=== PATIENT | male | born 1955 | race African-American/Black ===

== ENCOUNTER 2019-07-16 16:44 | Inpatient (IN) | payer OTHER ==
[2019-07-16 19:43] VITALS: BMI 27.3
[2019-07-16] MEDS ORDERED: MAGNESIUM CITRATE 300 ML BOTTLE PO PRN (21:29)
[2019-07-16] MEDS ORDERED: chlordiazePOXIDE HCL 25 MG CAPSULE PO PRN (21:29)
[2019-07-16] MEDS ORDERED: DICYCLOMINE HCL 10 MG CAPSULE PO PRN (21:29)
[2019-07-16] MEDS ORDERED: MENTHOL/PHENOL 1 EACH UD MM PRN (21:29)
[2019-07-16] MEDS ORDERED: BISMUTH SUBSALICYLATE 524 MG/30 ML UD PO PRN (21:29)
[2019-07-16] MEDS ORDERED: hydrOXYzine PAMOATE 25 MG CAPSULE (FP) PO PRN (21:29)
[2019-07-16] MEDS ORDERED: IBUPROFEN 400 MG TABLET (FP) PO PRN (21:29)
[2019-07-16] MEDS ORDERED: MAG HYDROX/AL HYDROX/SIMETH 30 ML UNIT-DOSE CUP PO PRN (21:29)
[2019-07-16] MEDS ORDERED: MAGNESIUM HYDROX 2400MG/30ML ORAL SUSPENSION 30 ML CUP PO PRN (21:29)
[2019-07-16] MEDS ORDERED: ACETAMINOPHEN 325 MG TABLET (FP) PO PRN ×2 (21:29)
[2019-07-16] MEDS ORDERED: ONDANSETRON *ODT* 4 MG TABLET SL PRN (21:29)
[2019-07-16] MEDS ORDERED: METHOCARBAMOL 500 MG TABLET PO PRN (21:29)
[2019-07-16] MEDS ORDERED: guaiFENesin 200 MG/10 ML 10 ML UNIT-DOSE CUPS PO PRN (21:29)
[2019-07-16] MEDS ORDERED: MELATONIN 5 MG TABLETS PO PRN (21:29)
[2019-07-16] MEDS ORDERED: NICOTINE POLACRILEX 2 MG GUM BUC PRN (21:29)
[2019-07-16] MEDS ORDERED: P-EPHED 60MG/TRIPROLIDI 2.5MG TABLET PO PRN (21:29)
--- NOTE | 2019-07-16 21:41 | HP ---
CIWA Score Nausea/Vomitin-No Nausea/No Vomiting Muscle Tremors: None Anxiety: 1-Mildly Anxious Agitation: 1-Slight > Activity Paroxysmal Sweats: 3 Orientation: 2-Disoriented Date<2 days Tacttile Disturbances: 3-Moderate Itch/Numb/Burn Auditory Disturbances: 0-None Visual Disturbances: 0-None Headache: 0-None Present CIWA-Ar Total Score: 10 - Admission Criteria OAS Guidelines: Admission for Medically Managed Detox: Requires at least one of the followin. CIWA greater than 12 2. Seizures within the past 24 hours 3. Delirium tremens within the past 24 hours 4. Hallucinations within the past 24 hours 5. Acute intervention needed for co occurring medical disorder 6. Acute intervention needed for co occurring psychiatric disorder 7. Severe withdrawal that cannot be handled at a lower level of care (continued vomiting, continued diarrhea, abnormal vital signs) requiring intravenous medication and/or fluids 8. Patient presents the following: Acute intervention needed for co-occurring med or psych disorder Admission Criteria Met: Admission criteria met Admission ROS [facility] Chief Complaint: C/O WITHDRAWAL SX'S Allergies/Adverse Reactions: Allergies Allergy/AdvReac Type Severity Reaction Status Date / Time No Known Allergies Allergy Verified 07/16/19 19:28 History of Present Illness: HERE FOR ALCOHOL DETOX. CLIENT IS REFERRED BY [facility] OUT PATIENT FOR ON GOING ALCOHOL ABUSE. CLIENT REPORTS DAILY ALCOHOL INTAKE. LAST DRINK EARLIER TODAY. PRESENTS WITH C/O WORSENING WITHDRAWAL SX'S. SEEKING HELP HE CANT STOP DRINKING DUE TO WITHDRAWAL SX'S. DENIES HX/O SEIZURES, BLACKOUTS, OVERDOSE, SI/ HI, + auditory hALLUCINATION WITH INTOXICATION. DENIES ANY SIGNIFICANT PERIOD OF CLEAN TIME EXCEPT WHEN IN TXMENT. HOMELESS, EMPLOYED, DENIES LEGALS Exam Limitations: No Limitations - Ebola screening Have you traveled outside of the country in the last 21 days: No Have you had contact with anyone from an Ebola affected area: No Do you have a fever: No - Review of Systems Constitutional: Chills, Loss of Appetite, Night Sweats, Changes in sleep EENT: reports: Dental Problems (DENTAL IMPLANTS) Respiratory: reports: No Symptoms reported Cardiac: reports: No Symptoms Reported GI: reports: Poor Appetite, Poor Fluid Intake : reports: No Symptoms Reported Musculoskeletal: reports: No Symptoms Reported Integumentary: reports: Dryness Neuro: reports: No Symptoms reported, Numbness Endocrine: reports: No Symptoms Reported Hematology: reports: No Symptoms Reported Psychiatric: reports: Anxious Other Systems: Reviewed and Negative Patient History - Patient Medical History Hx Anemia: No Hx Asthma: No Hx Chronic Obstructive Pulmonary Disease (COPD): No Hx Cancer: No Hx Cardiac Disorders: No Hx Congestive Heart Failure: No Hx Hypertension: No Hx Hypercholesterolemia: No Hx Pacemaker: No HX Cerebrovascular Accident: No Hx Seizures: No Hx Dementia: No Hx Diabetes: No Hx Gastrointestinal Disorders: No Hx Liver Disease: No Hx Genitourinary Disorders: No Hx Sexually Transmitted Disorders: No Hx Renal Disease (ESRD): No Hx Thyroid Disease: No Hx Human Immunodeficiency Virus (HIV): No Hx Hepatitis C: No Hx Depression: Yes Hx Suicide Attempt: No Hx Bipolar Disorder: No Hx Schizophrenia: No Other Medical History: DENIES - Patient Surgical History Past Surgical History: Yes - PPD History Previous Implant?: Yes Documented Results: Negative w/proof Implanted On Prior [facility] Admission?: No PPD to be Administered?: Yes - Smoking Cessation Smoking history: Current every day smoker Have you smoked in the past 12 months: Yes Aproximately how many cigarettes per day: 0 Cigars Per Day: 6 (MONTH) Hx Chewing Tobacco Use: No Initiated information on smoking cessation: Yes 'Breaking Loose' booklet given: 07/16/19 - Substance & Tx. History Hx Alcohol Use: Yes Hx Substance Use: Yes Substance Use Type: Alcohol, Cocaine Hx Substance Use Treatment: Yes ([facility] - Substances abused Crack Other (specify): crack. Substance route: Smoking Frequency: 3-6 times per week Amount used: 40 to 60 dollars Age of first use: 54 Date of last use: 07/16/19 Alcohol Substance route: Oral Frequency: 3-6 times per week Amount used: 1 pint of hard liqour. Age of first use: 19 Date of last use: 07/16/19 Admission Physical Exam BHS - Vital Signs Vital Signs: Vital Signs - 24 hr 07/16/19 07/16/19 19:32 21:11 Temperature 98.4 F 98.4 F Pulse Rate 97 H 97 H Respiratory 20 20 Rate Blood Pressure 122/76 122/76 - Physical General Appearance: Yes: Mild Distress, Anxious HEENTM: Yes: EOMI, Normocephalic, Normal Voice, MENG, Pharynx Normal, Other ( MISSING TEETH) Respiratory: Yes: Chest Non-Tender, Lungs Clear, Normal Breath Sounds, No Respiratory Distress, No Accessory Muscle Use Neck: Yes: No masses,lesions,Nodules, Supple, Trachea in good position Breast: Yes: Breasts Symetrical Cardiology: Yes: Regular Rhythm, Regular Rate, S1, S2 Abdominal: Yes: Normal Bowel Sounds, Non Tender, Soft Genitourinary: Yes: Within Normal Limits Back: Yes: Normal Inspection Musculoskeletal: Yes: full range of Motion, Gait Steady, Joint Stiffness (R IGHT HIP) Extremities: Yes: Normal Capillary Refill, Normal Range of Motion, Non-Tender Neurological: Yes: Alert, Motor Strength 5/5, Depressed Affect Integumentary: Yes: Dry, Warm Lymphatic: Yes: Within Normal Limits - Diagnostic (1) Alcohol dependence with withdrawal, uncomplicated Current Visit: Yes Status: Acute (2) Cocaine dependence, uncomplicated Current Visit: Yes Status: Acute (3) Tobacco abuse Current Visit: Yes Status: Acute (4) Homeless Current Visit: Yes Status: Acute (5) Substance induced mood disorder Current Visit: Yes Status: Acute (6) Arthritis of right hip Current Visit: Yes Status: Chronic Cleared for Admission [facility] - Detox or Rehab [facility] Level of Care: Medically Managed Detox Regimen/Protocol: Librium Claeared for Rehab Admission: No Breathalyzer - Breathalyzer Breathalyzer: 0 Urine Drug Screen - Test Device Lot number: [id number] Expiration date: 03/31/21 - Control Is test valid?: Yes - Results Drug screen NEGATIVE: No Urine drug screen results: JAREN-Cocaine Inpatient Rehab Admission - Rehab Decision to Admit Inpatient rehab admission?: No
[2019-07-16] MEDS ORDERED: chlordiazePOXIDE HCL 10 MG CAPSULE PO PRN (21:47)
[2019-07-16] MEDS ORDERED: chlordiazePOXIDE HCL 25 MG CAPSULE PO SCH (23:00)
[2019-07-16] MEDS: THIAMINE HCL 100 MG TABLET (FP) PO SCH (23:56)
[2019-07-16] MEDS: NAPROXEN 500 MG TABLET (FP) PO SCH (23:56)
[2019-07-16] MEDS: chlordiazePOXIDE HCL 25 MG CAPSULE PO SCH (23:56)
[2019-07-17] MEDS: chlordiazePOXIDE HCL 25 MG CAPSULE PO SCH ×3 (05:11→22:12)
[2019-07-17] MEDS ORDERED: NICOTINE 14 MG/24 HOURS TOPICAL PATCH TD SCH (10:00)
[2019-07-17] MEDS: PRENATAL VITAMINS W/ FOLIC ACID TABLET (FP) PO SCH (10:16)
[2019-07-17] MEDS: NAPROXEN 500 MG TABLET (FP) PO SCH ×2 (10:16→22:12)
[2019-07-17 10:20] LABS: URINE APPEARANCE CLEAR; URINE BILIRUBIN NEGATIVE (NEGATIVE); URINE COLOR YELLOW; URINE GLUCOSE (UA) NEGATIVE (NEGATIVE); URINE KETONE NEGATIVE (NEGATIVE); URINE LEUK ESTERASE NEGATIVE (NEGATIVE); URINE NITRITE NEGATIVE (NEGATIVE); URINE PROTEIN NEGATIVE (NEGATIVE)
[2019-07-17 10:27] LABS: HEMOGLOBIN 11.1 GM/dL (11.7-16.9); MCH 30.4 pg (25.7-33.7); MCHC 33.6 g/dl (32.0-35.9); MEAN CELL VOLUME 90.5 fl (80-96); MEAN PLT VOLUME 8.1 fl (7.5-11.1); PLATELET COUNT 273 K/MM3 (134-434); RBC 3.64 M/mm3 (4.00-5.60); RDW 16.8 % (11.9-15.9); WHITE BLOOD COUNT 6.3 K/mm3 (4.0-10.0)
[2019-07-17 10:35] LABS: ALBUMIN 3.5 g/dl (3.4-5.0); BILIRUBIN,TOTAL 0.2 mg/dL (0.2-1); BLOOD UREA NITROGEN 13.1 mg/dL (7-18); CALCIUM 8.6 mg/dL (8.5-10.1); CREATININE 0.9 mg/dL (0.55-1.3); POTASSIUM 4.1 mmol/L (3.5-5.1); TOT PROT 6.4 g/dl (6.4-8.2)
--- NOTE | 2019-07-17 12:30 | PN ---
[facility] CIWA - CIWA Score Nausea/Vomitin-No Nausea/No Vomiting Muscle Tremors: None Anxiety: 4-Mod. Anxious/Guarded Agitation: 0-Normal Activity Paroxysmal Sweats: 2 Orientation: 0-Oriented Tacttile Disturbances: 1-Very Mild Itch/Numbness Auditory Disturbances: 0-None Visual Disturbances: 3-Moderate Sensitivity Headache: 0-None Present CIWA-Ar Total Score: 10 BHS Progress Note (SOAP) Subjective: Fatigue, Anxious, Sweating. Objective: PATIENT A & O X 3. IN NO ACUTE DISTRESS. 07/17/19 12:28 Vital Signs Temperature 99.0 F 07/17/19 10:00 Pulse Rate 119 H 07/17/19 10:00 Respiratory Rate 18 07/17/19 10:00 Blood Pressure 153/79 07/17/19 10:00 O2 Sat by Pulse Oximetry (%) Laboratory Tests 07/17/19 07/17/19 07/17/19 07:55 07:55 07:55 WBC 6.3 RBC 3.64 L Hgb 11.1 L Hct 33.0 L MCV 90.5 MCH 30.4 MCHC 33.6 RDW 16.8 H Plt Count 273 MPV 8.1 Sodium 140 Potassium 4.1 Chloride 105 Carbon Dioxide 29 Anion Gap 6 L BUN 13.1 Creatinine 0.9 Est GFR (CKD-EPI)AfAm 104.24 Est GFR (CKD-EPI)NonAf 89.94 Random Glucose 91 Calcium 8.6 Total Bilirubin 0.2 AST 11 L ALT 13 Alkaline Phosphatase 99 Total Protein 6.4 Albumin 3.5 Urine Color Urine Appearance Urine pH Ur Specific [place] Urine Protein Urine Glucose (UA) Urine Ketones Urine Blood Urine Nitrite Urine Bilirubin Urine Urobilinogen Ur Leukocyte Esterase RPR Titer Nonreactive 07/17/19 07:55 WBC RBC Hgb Hct MCV MCH MCHC RDW Plt Count MPV Sodium Potassium Chloride Carbon Dioxide Anion Gap BUN Creatinine Est GFR (CKD-EPI)AfAm Est GFR (CKD-EPI)NonAf Random Glucose Calcium Total Bilirubin AST ALT Alkaline Phosphatase Total Protein Albumin Urine Color Yellow Urine Appearance Clear Urine pH 7.0 Ur Specific [place] 1.026 Urine Protein Negative Urine Glucose (UA) Negative Urine Ketones Negative Urine Blood Negative Urine Nitrite Negative Urine Bilirubin Negative Urine Urobilinogen 1.0 Ur Leukocyte Esterase Negative RPR Titer LABS NOTED. Assessment: 07/17/19 12:29 WITHDRAWAL SYMPTOMS. ANEMIA. Plan: CONTINUE DETOX. PATIENT IS CURRENTLY RECEIVING DAILY MVI CONTAINING B VITAMINS AND IRON WHILE ADMITTED FOR DETOX.
--- NOTE | 2019-07-17 17:06 | CONSULT ---
[facility] Psychiatric Consult - Data Date of interview: 07/17/19 Admission source: [facility] Identifying data: First admission to [facility] [place] for this 64 y/o AA male self- referred for detoxification (RAMIRO issues (alcohol, nicotine, cocaine/crack). Interviewed at [address] [place] [address]. Patient is single, a father of two, domiciled, unemployed and supported on SSI benefits. Substance Abuse History: Discussed in this session. Details in current [facility] report as follows : Smoking history: Current every day smoker. Have you smoked in the past 12 months: Yes. Aproximately how many cigarettes per day: 0. Cigars Per Day: 6 (MONTH). Hx Chewing Tobacco Use: No. Initiated information on smoking cessation: Yes. 'Breaking Loose' booklet given: 07/16/19. - Substance & Tx. History. Hx Alcohol Use: Yes. Hx Substance Use: Yes. Substance Use Type: Alcohol, Cocaine. Hx Substance Use Treatment: Yes ([facility]). - Substances abused. Crack. Other (specify): crack. Substance route: Smoking. Frequency: 3-6 times per week. Amount used: 40 to 60 dollars. Age of first use: 54. Date of last use: 07/16/19. Alcohol. Substance route: Oral. Frequency: 3-6 times per week. Amount used: 1 pint of hard liqour. Age of first use: 19. Date of last use: 07/16/19 Medical History: Arthritis. Psychiatric History: Patient endorses history of 3-4 psychiatric hospitalizations ([facility]ly [facility], [facility], [facility]). Diagnosed with MDD (self-report). Mr Gavin reports that he dropped out of psychistric OPD care for several months. Has been off psychotropic medications for months. No recall onf names of molecules prescribed in the past. Patient denies history of suicide attempts. Physical/Sexual Abuse/Trauma History: Served in the [employer] from 1972 to 1978. Saw action in [place] ([place] Additional Comment: Urine drug screen results: JAREN-Cocaine. Noted. Mental Status Exam - Mental Status Exam Alert and Oriented to: Time, Place, Person Cognitive Function: Good Patient Appearance: Well Groomed Mood: Withdrawn, Hopeful Affect: Appropriate, Normal Range Patient Behavior: Fatigued, Appropriate, Cooperative Speech Pattern: Clear, Appropriate Voice Loudness: Normal Thought Process: Intact, Goal Oriented Thought Disorder: Not Present Hallucinations: Denies Suicidal Ideation: Denies Homicidal Ideation: Denies Insight/Judgement: Fair Sleep: Well Appetite: Good Muscle strength/Tone: Normal Gait/Station: Normal Psychiatric Findings - Problem List ([place] 1, 2,3) (1) Alcohol dependence with withdrawal, uncomplicated Current Visit: Yes Status: Acute (2) Cocaine dependence, uncomplicated Current Visit: Yes Status: Chronic (3) Substance induced mood disorder Current Visit: Yes Status: Suspected - Initial Treatment Plan Initial Treatment Plan: Psychoeducation. Sleep hygiene. Detoxification. AA meetings. MAT services discussed : no interest expressed by patient. Support. Groups. Observation.
[2019-07-17] MEDS: THIAMINE HCL 100 MG TABLET (FP) PO SCH (22:12)
[2019-07-18] MEDS ORDERED: chlordiazePOXIDE HCL 25 MG CAPSULE PO SCH (05:00)
[2019-07-18] MEDS: chlordiazePOXIDE 5 MG CAPSULE PO SCH ×3 (05:49→22:08)
[2019-07-18] MEDS: PRENATAL VITAMINS W/ FOLIC ACID TABLET (FP) PO SCH (10:26)
[2019-07-18] MEDS: NAPROXEN 500 MG TABLET (FP) PO SCH ×2 (10:26→22:08)
--- NOTE | 2019-07-18 11:28 | PN ---
S CIWA - CIWA Score Nausea/Vomitin-No Nausea/No Vomiting Muscle Tremors: 2 Anxiety: 2 Agitation: 1-Slight > Activity Paroxysmal Sweats: 2 Orientation: 0-Oriented Tacttile Disturbances: 0-None Auditory Disturbances: 0-None Visual Disturbances: 0-None Headache: 0-None Present CIWA-Ar Total Score: 7 BHS Progress Note (SOAP) Subjective: Feels ok, medication working well Objective: 07/18/19 11:26 Last Vital Signs Temp Pulse Resp BP Pulse Ox 96.4 F L 95 H 18 129/77 07/18/19 10:43 07/18/19 10:43 07/18/19 10:43 07/18/19 10:43 Laboratory Tests 07/17/19 07/17/19 07/17/19 07:55 07:55 07:55 WBC 6.3 RBC 3.64 L Hgb 11.1 L Hct 33.0 L MCV 90.5 MCH 30.4 MCHC 33.6 RDW 16.8 H Plt Count 273 MPV 8.1 Sodium 140 Potassium 4.1 Chloride 105 Carbon Dioxide 29 Anion Gap 6 L BUN 13.1 Creatinine 0.9 Est GFR (CKD-EPI)AfAm 104.24 Est GFR (CKD-EPI)NonAf 89.94 Random Glucose 91 Calcium 8.6 Total Bilirubin 0.2 AST 11 L ALT 13 Alkaline Phosphatase 99 Total Protein 6.4 Albumin 3.5 Urine Color Urine Appearance Urine pH Ur Specific [place] Urine Protein Urine Glucose (UA) Urine Ketones Urine Blood Urine Nitrite Urine Bilirubin Urine Urobilinogen Ur Leukocyte Esterase RPR Titer Nonreactive 07/17/19 07:55 WBC RBC Hgb Hct MCV MCH MCHC RDW Plt Count MPV Sodium Potassium Chloride Carbon Dioxide Anion Gap BUN Creatinine Est GFR (CKD-EPI)AfAm Est GFR (CKD-EPI)NonAf Random Glucose Calcium Total Bilirubin AST ALT Alkaline Phosphatase Total Protein Albumin Urine Color Yellow Urine Appearance Clear Urine pH 7.0 Ur Specific [place] 1.026 Urine Protein Negative Urine Glucose (UA) Negative Urine Ketones Negative Urine Blood Negative Urine Nitrite Negative Urine Bilirubin Negative Urine Urobilinogen 1.0 Ur Leukocyte Esterase Negative RPR Titer Labs reviewed: anemia noted (mild) Assessment: 07/18/19 11:27 Withdrawal sxs Noted with mild anemia Plan: Continue detox Encouraged PO water intake Mild anemia: most likely due to alcoholism, follow up with PCP for management
[2019-07-18] MEDS: THIAMINE HCL 100 MG TABLET (FP) PO SCH (22:08)
[2019-07-19] MEDS ORDERED: chlordiazePOXIDE HCL 10 MG CAPSULE PO PRN ×2
[2019-07-19] MEDS ORDERED: chlordiazePOXIDE HCL 10 MG CAPSULE PO SCH (05:00)
[2019-07-19] MEDS: chlordiazePOXIDE HCL 10 MG CAPSULE PO SCH ×3 (05:13→22:15)
--- NOTE | 2019-07-19 09:52 | PN ---
[facility] CIWA - CIWA Score Nausea/Vomitin-Mild Nausea/No Vomiting Muscle Tremors: 1-None Visible, but [place] Anxiety: 1-Mildly Anxious Agitation: 1-Slight > Activity Paroxysmal Sweats: No Perspiration Orientation: 0-Oriented Tacttile Disturbances: 0-None Auditory Disturbances: 0-None Visual Disturbances: 0-None Headache: 1-Very Mild CIWA-Ar Total Score: 5 BHS Progress Note (SOAP) Subjective: alert,interrupted sleep, Objective: 07/19/19 09:51 Vital Signs Temperature 98.1 F 07/19/19 09:26 Pulse Rate 89 07/19/19 09:26 Respiratory Rate 18 07/19/19 09:26 Blood Pressure 124/77 07/19/19 09:26 O2 Sat by Pulse Oximetry (%) Assessment: 07/19/19 09:51 withdrawal symptom Plan: continue detox librium regimen,discharge in am
[2019-07-19] MEDS: NAPROXEN 500 MG TABLET (FP) PO SCH ×2 (10:50→22:15)
[2019-07-19] MEDS: PRENATAL VITAMINS W/ FOLIC ACID TABLET (FP) PO SCH (10:50)
[2019-07-19] MEDS: THIAMINE HCL 100 MG TABLET (FP) PO SCH (22:15)
[2019-07-20] MEDS ORDERED: chlordiazePOXIDE HCL 10 MG CAPSULE PO ONE (05:00)
[2019-07-20] MEDS ORDERED: chlordiazePOXIDE HCL 10 MG CAPSULE PO SCH (05:00)
--- NOTE | 2019-07-20 08:52 | DS ---
[facility] Detox Discharge Summary Admission Date: 07/16/19 Discharge Date: 07/20/19 - History Present History: Alcohol Dependence, Cocaine Dependence - Physical Exam Results Vital Signs: Vital Signs Temperature 97.5 F L 07/20/19 06:33 Pulse Rate 80 07/20/19 06:33 Respiratory Rate 18 07/20/19 06:33 Blood Pressure 114/69 07/20/19 06:33 O2 Sat by Pulse Oximetry (%) Pertinent Admission Physical Exam Findings: pt arrived in withdrawals Vital Signs Temperature 97.5 F L 07/20/19 06:33 Pulse Rate 80 07/20/19 06:33 Respiratory Rate 18 07/20/19 06:33 Blood Pressure 114/69 07/20/19 06:33 O2 Sat by Pulse Oximetry (%) Laboratory Tests 07/17/19 07/17/19 07/17/19 07:55 07:55 07:55 WBC 6.3 RBC 3.64 L Hgb 11.1 L Hct 33.0 L MCV 90.5 MCH 30.4 MCHC 33.6 RDW 16.8 H Plt Count 273 MPV 8.1 Sodium 140 Potassium 4.1 Chloride 105 Carbon Dioxide 29 Anion Gap 6 L BUN 13.1 Creatinine 0.9 Est GFR (CKD-EPI)AfAm 104.24 Est GFR (CKD-EPI)NonAf 89.94 Random Glucose 91 Calcium 8.6 Total Bilirubin 0.2 AST 11 L ALT 13 Alkaline Phosphatase 99 Total Protein 6.4 Albumin 3.5 Urine Color Urine Appearance Urine pH Ur Specific [place] Urine Protein Urine Glucose (UA) Urine Ketones Urine Blood Urine Nitrite Urine Bilirubin Urine Urobilinogen Ur Leukocyte Esterase RPR Titer Nonreactive 07/17/19 07:55 WBC RBC Hgb Hct MCV MCH MCHC RDW Plt Count MPV Sodium Potassium Chloride Carbon Dioxide Anion Gap BUN Creatinine Est GFR (CKD-EPI)AfAm Est GFR (CKD-EPI)NonAf Random Glucose Calcium Total Bilirubin AST ALT Alkaline Phosphatase Total Protein Albumin Urine Color Yellow Urine Appearance Clear Urine pH 7.0 Ur Specific [place] 1.026 Urine Protein Negative Urine Glucose (UA) Negative Urine Ketones Negative Urine Blood Negative Urine Nitrite Negative Urine Bilirubin Negative Urine Urobilinogen 1.0 Ur Leukocyte Esterase Negative RPR Titer today pt is aaox3 ambulating no acute distress no s/s of withdrawals - Treatment Hospital Course: Detox Protocol Followed, Detoxed Safely, Responded well, Discharged Condition Good, Rehab Referral Accepted Patient has Accepted a Rehab Referral to: pt referred to [facility] - Medication Discharge Medications: Ambulatory Orders Naproxen [Naprosyn] 1,000 mg PO DAILY PRN 07/16/19 - Diagnosis (1) Alcohol dependence with withdrawal, uncomplicated Current Visit: Yes Status: Chronic (2) Anemia Current Visit: Yes Status: Chronic Qualifiers: Anemia type: unspecified type Qualified Code(s): D64.9 - Anemia, unspecified (3) Homeless Current Visit: Yes Status: Acute (4) Tobacco abuse Current Visit: Yes Status: Acute (5) Arthritis of right hip Current Visit: Yes Status: Chronic (6) Cocaine dependence, uncomplicated Current Visit: Yes Status: Chronic (7) Substance induced mood disorder Current Visit: Yes Status: Suspected - AMA Did Patient Leave Against Medical Advice: No
[2019-07-20 10:11] VITALS: BP 127/77; PULSE 86; TEMP 97.3
[2019-07-20] MEDS: NAPROXEN 500 MG TABLET (FP) PO SCH (10:31)
[2019-07-20] MEDS: PRENATAL VITAMINS W/ FOLIC ACID TABLET (FP) PO SCH (10:31)
[2019-07-21] MEDS ORDERED: chlordiazePOXIDE HCL 10 MG CAPSULE PO ONE (05:00)
== END 2019-07-20 14:25 | disposition other institution (70) | DRG 774 ==
LOC: YASAS 16:44 → Y6N 22:26
PROVIDERS: ADMIT Allergy & Immunology; ATTEND Allergy & Immunology
PROC: HZ2ZZZZ Detoxification Services for Substance Abuse Treatment (ICD-10-PCS; principal; 2019-07-16)
DX: F10.230 Alcohol dependence with withdrawal, uncomplicated (principal); F14.20 Cocaine dependence, uncomplicated; F17.290 Nicotine dependence, other tobacco product, uncomplicated; F19.24 Other psychoactive substance dependence with psychoactive substance-induced mood disorder; D64.9 Anemia, unspecified; M13.851 Other specified arthritis, right hip; Z59.0 Homelessness
CPT/HCPCS: 36415; 80053; 81003; 85027; 86593

== ENCOUNTER 2019-07-20 14:35 | Inpatient (IN) | payer OTHER ==
[2019-07-20] MEDS ORDERED: NICOTINE POLACRILEX 4 MG GUM BUC PRN (15:07)
[2019-07-20] MEDS ORDERED: MAGNESIUM CITRATE 300 ML BOTTLE PO PRN (15:07)
[2019-07-20] MEDS ORDERED: guaiFENesin 200 MG/10 ML 10 ML UNIT-DOSE CUPS PO PRN (15:07)
[2019-07-20] MEDS ORDERED: MAG HYDROX/AL HYDROX/SIMETH 30 ML UNIT-DOSE CUP PO PRN (15:07)
[2019-07-20] MEDS ORDERED: P-EPHED 60MG/TRIPROLIDI 2.5MG TABLET PO PRN (15:07)
[2019-07-20] MEDS ORDERED: LOPERAMIDE HCL 2 MG CAPSULE PO PRN (15:07)
[2019-07-20] MEDS ORDERED: hydrOXYzine PAMOATE 50 MG CAPSULE (FP) PO PRN (15:07)
[2019-07-20] MEDS ORDERED: IBUPROFEN 400 MG TABLET (FP) PO PRN (15:07)
[2019-07-20] MEDS ORDERED: MENTHOL/PHENOL 1 EACH UD MM PRN (15:07)
[2019-07-20] MEDS ORDERED: ACETAMINOPHEN 325 MG TABLET (FP) PO PRN (15:07)
[2019-07-20] MEDS ORDERED: MAGNESIUM HYDROX 2400MG/30ML ORAL SUSPENSION 30 ML CUP PO PRN (15:07)
--- NOTE | 2019-07-20 15:07 | HP ---
[facility] Rehab Assess/Revision - Admission History Admitted to Rehab from: [address] - Vital signs Vital Signs: Vital Signs Period Temp Pulse Resp BP Sys/Benito Pulse Ox Last 24 Hr 97.5 F 107 18 117/74 - Findings Detox History & Physical reviewed: Yes Concur with findings: Yes Inpatient Rehab Admission - Rehab Decision to Admit Inpatient rehab admission?: Yes - Initial Determination Are CD services needed?: Yes Free of communicable disease: Yes Not in need of hospitalization: Yes - Rehab Admission Criteria Previous failed treatment: Yes Poor recovery environment: Yes Comorbidities: Yes Lacks judgement: Yes Patient is meeting Inpatient Rehab admission criteria:: Yes
[2019-07-20] MEDS: THIAMINE HCL 100 MG TABLET (FP) PO SCH (21:15)
[2019-07-20] MEDS: MELATONIN 5 MG TABLETS PO PRN (21:15)
[2019-07-20] MEDS: NAPROXEN 500 MG TABLET (FP) PO SCH (21:15)
[2019-07-21] MEDS: PRENATAL VITAMINS W/ FOLIC ACID TABLET (FP) PO SCH (10:26)
[2019-07-21] MEDS: NAPROXEN 500 MG TABLET (FP) PO SCH ×2 (10:26→22:28)
[2019-07-21] MEDS: NICOTINE 21 MG/24 HOURS TOPICAL PATCH TD SCH (10:26)
[2019-07-21] MEDS: THIAMINE HCL 100 MG TABLET (FP) PO SCH (22:28)
[2019-07-22] MEDS: NAPROXEN 500 MG TABLET (FP) PO SCH ×2 (10:03→21:21)
[2019-07-22] MEDS: PRENATAL VITAMINS W/ FOLIC ACID TABLET (FP) PO SCH (10:03)
[2019-07-22] MEDS: NICOTINE 21 MG/24 HOURS TOPICAL PATCH TD SCH (10:04)
[2019-07-22] MEDS: MELATONIN 5 MG TABLETS PO PRN (21:21)
[2019-07-22] MEDS: THIAMINE HCL 100 MG TABLET (FP) PO SCH (21:21)
[2019-07-23] MEDS: NAPROXEN 500 MG TABLET (FP) PO SCH ×2 (10:31→21:40)
[2019-07-23] MEDS: NICOTINE 21 MG/24 HOURS TOPICAL PATCH TD SCH (10:31)
[2019-07-23] MEDS: PRENATAL VITAMINS W/ FOLIC ACID TABLET (FP) PO SCH (10:31)
[2019-07-23] MEDS: MELATONIN 5 MG TABLETS PO PRN (21:40)
[2019-07-23] MEDS: THIAMINE HCL 100 MG TABLET (FP) PO SCH (21:40)
[2019-07-24] MEDS: PRENATAL VITAMINS W/ FOLIC ACID TABLET (FP) PO SCH (09:46)
[2019-07-24] MEDS: NICOTINE 21 MG/24 HOURS TOPICAL PATCH TD SCH (09:46)
[2019-07-24] MEDS: NAPROXEN 500 MG TABLET (FP) PO SCH ×2 (09:46→21:07)
[2019-07-24] MEDS: THIAMINE HCL 100 MG TABLET (FP) PO SCH (21:07)
[2019-07-25] MEDS: PRENATAL VITAMINS W/ FOLIC ACID TABLET (FP) PO SCH (10:31)
[2019-07-25] MEDS: NICOTINE 21 MG/24 HOURS TOPICAL PATCH TD SCH (10:32)
[2019-07-25] MEDS: NAPROXEN 500 MG TABLET (FP) PO SCH ×2 (10:32→21:17)
[2019-07-25] MEDS: THIAMINE HCL 100 MG TABLET (FP) PO SCH (21:17)
[2019-07-26] MEDS: PRENATAL VITAMINS W/ FOLIC ACID TABLET (FP) PO SCH (10:35)
[2019-07-26] MEDS: NAPROXEN 500 MG TABLET (FP) PO SCH ×2 (10:35→21:13)
[2019-07-26] MEDS: NICOTINE 21 MG/24 HOURS TOPICAL PATCH TD SCH (10:35)
[2019-07-26] MEDS: MELATONIN 5 MG TABLETS PO PRN (21:13)
[2019-07-26] MEDS: THIAMINE HCL 100 MG TABLET (FP) PO SCH (21:13)
[2019-07-27] MEDS: PRENATAL VITAMINS W/ FOLIC ACID TABLET (FP) PO SCH (10:14)
[2019-07-27] MEDS: NICOTINE 21 MG/24 HOURS TOPICAL PATCH TD SCH (10:15)
[2019-07-27] MEDS: NAPROXEN 500 MG TABLET (FP) PO SCH ×2 (10:15→22:00)
[2019-07-27] MEDS: MELATONIN 5 MG TABLETS PO PRN (22:00)
[2019-07-27] MEDS: THIAMINE HCL 100 MG TABLET (FP) PO SCH (22:00)
[2019-07-28] MEDS: NAPROXEN 500 MG TABLET (FP) PO SCH ×2 (10:42→21:55)
[2019-07-28] MEDS: NICOTINE 21 MG/24 HOURS TOPICAL PATCH TD SCH (10:42)
[2019-07-28] MEDS: PRENATAL VITAMINS W/ FOLIC ACID TABLET (FP) PO SCH (10:42)
[2019-07-28] MEDS: MELATONIN 5 MG TABLETS PO PRN (21:56)
[2019-07-28] MEDS: THIAMINE HCL 100 MG TABLET (FP) PO SCH (21:56)
[2019-07-29] MEDS: PRENATAL VITAMINS W/ FOLIC ACID TABLET (FP) PO SCH (10:28)
[2019-07-29] MEDS: NAPROXEN 500 MG TABLET (FP) PO SCH ×2 (10:28→21:47)
[2019-07-29] MEDS: NICOTINE 21 MG/24 HOURS TOPICAL PATCH TD SCH (10:28)
[2019-07-29] MEDS: MELATONIN 5 MG TABLETS PO PRN (21:47)
[2019-07-29] MEDS: THIAMINE HCL 100 MG TABLET (FP) PO SCH (21:47)
[2019-07-30] MEDS: NICOTINE 21 MG/24 HOURS TOPICAL PATCH TD SCH (09:57)
[2019-07-30] MEDS: PRENATAL VITAMINS W/ FOLIC ACID TABLET (FP) PO SCH (09:57)
[2019-07-30] MEDS: NAPROXEN 500 MG TABLET (FP) PO SCH ×2 (09:57→22:59)
[2019-07-30] MEDS: THIAMINE HCL 100 MG TABLET (FP) PO SCH (22:59)
[2019-07-31] MEDS: PRENATAL VITAMINS W/ FOLIC ACID TABLET (FP) PO SCH (09:21)
[2019-07-31] MEDS: NAPROXEN 500 MG TABLET (FP) PO SCH ×2 (09:21→21:41)
[2019-07-31] MEDS: NICOTINE 21 MG/24 HOURS TOPICAL PATCH TD SCH (09:21)
[2019-07-31] MEDS: THIAMINE HCL 100 MG TABLET (FP) PO SCH (21:41)
[2019-08-01] MEDS: NICOTINE 21 MG/24 HOURS TOPICAL PATCH TD SCH (09:00)
[2019-08-01] MEDS: PRENATAL VITAMINS W/ FOLIC ACID TABLET (FP) PO SCH (09:00)
[2019-08-01] MEDS: NAPROXEN 500 MG TABLET (FP) PO SCH ×2 (09:00→21:44)
[2019-08-01] MEDS: THIAMINE HCL 100 MG TABLET (FP) PO SCH (21:44)
[2019-08-02] MEDS: NAPROXEN 500 MG TABLET (FP) PO SCH ×2 (10:34→21:29)
[2019-08-02] MEDS: NICOTINE 21 MG/24 HOURS TOPICAL PATCH TD SCH (10:34)
[2019-08-02] MEDS: PRENATAL VITAMINS W/ FOLIC ACID TABLET (FP) PO SCH (10:34)
[2019-08-02] MEDS: THIAMINE HCL 100 MG TABLET (FP) PO SCH (21:29)
[2019-08-03] MEDS: PRENATAL VITAMINS W/ FOLIC ACID TABLET (FP) PO SCH (10:18)
[2019-08-03] MEDS: NAPROXEN 500 MG TABLET (FP) PO SCH ×2 (10:18→21:52)
[2019-08-03] MEDS: NICOTINE 21 MG/24 HOURS TOPICAL PATCH TD SCH (10:19)
[2019-08-03] MEDS: THIAMINE HCL 100 MG TABLET (FP) PO SCH (21:52)
[2019-08-04] MEDS: NAPROXEN 500 MG TABLET (FP) PO SCH ×2 (10:24→21:22)
[2019-08-04] MEDS: PRENATAL VITAMINS W/ FOLIC ACID TABLET (FP) PO SCH (10:24)
[2019-08-04] MEDS: NICOTINE 21 MG/24 HOURS TOPICAL PATCH TD SCH (10:26)
[2019-08-04] MEDS: THIAMINE HCL 100 MG TABLET (FP) PO SCH (21:23)
[2019-08-05] MEDS: NICOTINE 21 MG/24 HOURS TOPICAL PATCH TD SCH (09:44)
[2019-08-05] MEDS: PRENATAL VITAMINS W/ FOLIC ACID TABLET (FP) PO SCH (09:44)
[2019-08-05] MEDS: NAPROXEN 500 MG TABLET (FP) PO SCH ×2 (09:44→21:23)
[2019-08-05] MEDS: THIAMINE HCL 100 MG TABLET (FP) PO SCH (21:23)
[2019-08-06] MEDS: NICOTINE 21 MG/24 HOURS TOPICAL PATCH TD SCH (10:06)
[2019-08-06] MEDS: PRENATAL VITAMINS W/ FOLIC ACID TABLET (FP) PO SCH (10:06)
[2019-08-06] MEDS: NAPROXEN 500 MG TABLET (FP) PO SCH ×2 (10:06→21:28)
[2019-08-06] MEDS: THIAMINE HCL 100 MG TABLET (FP) PO SCH (21:28)
[2019-08-07] MEDS: NAPROXEN 500 MG TABLET (FP) PO SCH ×2 (10:16→21:43)
[2019-08-07] MEDS: PRENATAL VITAMINS W/ FOLIC ACID TABLET (FP) PO SCH (10:16)
[2019-08-07] MEDS: NICOTINE 21 MG/24 HOURS TOPICAL PATCH TD SCH (10:17)
[2019-08-07] MEDS: THIAMINE HCL 100 MG TABLET (FP) PO SCH (21:43)
[2019-08-08] MEDS: PRENATAL VITAMINS W/ FOLIC ACID TABLET (FP) PO SCH (09:52)
[2019-08-08] MEDS: NAPROXEN 500 MG TABLET (FP) PO SCH ×2 (09:52→22:04)
[2019-08-08] MEDS: NICOTINE 21 MG/24 HOURS TOPICAL PATCH TD SCH (09:52)
[2019-08-08] MEDS: THIAMINE HCL 100 MG TABLET (FP) PO SCH (22:04)
[2019-08-09] MEDS: PRENATAL VITAMINS W/ FOLIC ACID TABLET (FP) PO SCH (09:27)
[2019-08-09] MEDS: NAPROXEN 500 MG TABLET (FP) PO SCH ×2 (09:27→21:14)
[2019-08-09] MEDS: NICOTINE 21 MG/24 HOURS TOPICAL PATCH TD SCH (09:28)
[2019-08-09] MEDS: THIAMINE HCL 100 MG TABLET (FP) PO SCH (21:14)
[2019-08-10] MEDS: NICOTINE 21 MG/24 HOURS TOPICAL PATCH TD SCH (09:57)
[2019-08-10] MEDS: NAPROXEN 500 MG TABLET (FP) PO SCH ×2 (09:57→21:02)
[2019-08-10] MEDS: PRENATAL VITAMINS W/ FOLIC ACID TABLET (FP) PO SCH (09:57)
[2019-08-10] MEDS: THIAMINE HCL 100 MG TABLET (FP) PO SCH (21:02)
[2019-08-11] MEDS: NICOTINE 21 MG/24 HOURS TOPICAL PATCH TD SCH (10:11)
[2019-08-11] MEDS: NAPROXEN 500 MG TABLET (FP) PO SCH ×2 (10:11→21:06)
[2019-08-11] MEDS: PRENATAL VITAMINS W/ FOLIC ACID TABLET (FP) PO SCH (10:11)
[2019-08-11] MEDS: THIAMINE HCL 100 MG TABLET (FP) PO SCH (21:06)
[2019-08-12] MEDS: PRENATAL VITAMINS W/ FOLIC ACID TABLET (FP) PO SCH (09:43)
[2019-08-12] MEDS: NAPROXEN 500 MG TABLET (FP) PO SCH ×2 (09:43→21:17)
[2019-08-12] MEDS: NICOTINE 21 MG/24 HOURS TOPICAL PATCH TD SCH (09:44)
[2019-08-12] MEDS: THIAMINE HCL 100 MG TABLET (FP) PO SCH (21:17)
[2019-08-13] MEDS: PRENATAL VITAMINS W/ FOLIC ACID TABLET (FP) PO SCH (10:19)
[2019-08-13] MEDS: NAPROXEN 500 MG TABLET (FP) PO SCH ×2 (10:19→21:29)
[2019-08-13] MEDS: NICOTINE 21 MG/24 HOURS TOPICAL PATCH TD SCH (10:20)
[2019-08-13] MEDS: THIAMINE HCL 100 MG TABLET (FP) PO SCH (21:29)
[2019-08-14] MEDS: NAPROXEN 500 MG TABLET (FP) PO SCH ×2 (09:47→21:04)
[2019-08-14] MEDS: PRENATAL VITAMINS W/ FOLIC ACID TABLET (FP) PO SCH (09:47)
[2019-08-14] MEDS: NICOTINE 21 MG/24 HOURS TOPICAL PATCH TD SCH (09:47)
[2019-08-14] MEDS: THIAMINE HCL 100 MG TABLET (FP) PO SCH (21:04)
[2019-08-15 06:51] VITALS: PULSE 73
[2019-08-15] MEDS: PRENATAL VITAMINS W/ FOLIC ACID TABLET (FP) PO SCH (09:32)
[2019-08-15] MEDS: NAPROXEN 500 MG TABLET (FP) PO SCH ×2 (09:32→21:32)
[2019-08-15] MEDS: NICOTINE 21 MG/24 HOURS TOPICAL PATCH TD SCH (09:32)
[2019-08-15] MEDS: THIAMINE HCL 100 MG TABLET (FP) PO SCH (21:32)
[2019-08-16 06:41] VITALS: BP 142/82; TEMP 97.9
[2019-08-16] MEDS: PRENATAL VITAMINS W/ FOLIC ACID TABLET (FP) PO SCH (09:08)
[2019-08-16] MEDS: NICOTINE 21 MG/24 HOURS TOPICAL PATCH TD SCH (09:09)
[2019-08-16] MEDS: NAPROXEN 500 MG TABLET (FP) PO SCH (09:09)
--- NOTE | 2019-08-16 19:49 | DS ---
[facility] Rehab Discharge Summary - [facility] Rehab Discharge Summary Admission Date: 07/20/19 Discharge Date: 08/16/19 - History Present History: Alcohol dependence Pertinent Past History: Patient admitted completed detox at [facility] for alcohol dependence and admitted to rehab on 07/20/2019. Patient referred by [facility] for ongoing alcohol use. - Discharge Physical Exam Vital Signs: Vital Signs Temperature 97.9 F 08/16/19 06:40 Pulse Rate 73 08/16/19 06:40 Respiratory Rate 18 08/16/19 06:40 Blood Pressure 142/82 08/16/19 06:40 O2 Sat by Pulse Oximetry (%) Pertinent Admission Physical Exam Findings: Patient completed rehab today. Attended group meetings and 1:1 counseling sessions. Labs reviewed and results stable. Aftercare arranged for 12 step meetings, appointment today at 10am. Patient encouraged by staff to continue with group meetings to maintain sobriety and to follow up with PCP as recommended. Ambulatory Orders Naproxen [Naprosyn] 500 mg PO BID #30 tablet 08/16/19 Vital Signs Temperature 97.9 F 08/16/19 06:40 Pulse Rate 73 08/16/19 06:40 Respiratory Rate 18 08/16/19 06:40 Blood Pressure 142/82 08/16/19 06:40 O2 Sat by Pulse Oximetry (%) - Treatment Discharge Condition: Outpatient referral accepted - Medication Discharge Medications: Ambulatory Orders Naproxen [Naprosyn] 500 mg PO BID #30 tablet 08/16/19 - Medication-Assisted Treatment (MAT) Medication-Assisted Treatment (MAT): No - Discharge Instructions Diet, activity, other medical instructions: Diet: reg as tad Activity: as tad Other medical instructions: follow up with pcp as recommended - AMA Did Patient Leave Against Medical Advice: No
== END 2019-08-16 09:13 | disposition home or self-care (01) | DRG 772 ==
LOC: YASAS 14:35 → Y3W 14:36
PROVIDERS: ADMIT Neuromusculoskeletal Medicine & OMM; ATTEND Neuromusculoskeletal Medicine & OMM
PROC: HZ42ZZZ Group Counseling for Substance Abuse Treatment, Cognitive-Behavioral (ICD-10-PCS; principal; 2019-07-20)
DX: F10.20 Alcohol dependence, uncomplicated (principal); F17.210 Nicotine dependence, cigarettes, uncomplicated; Z59.0 Homelessness